=== PATIENT | female | born 1955 | race Caucasian/White ===

== ENCOUNTER 2018-09-16 23:08 | Inpatient (IN) | payer OTHER ==
[2018-09-17] MEDS ORDERED: LACTULOSE 30ML CUP PO (05:30)
[2018-09-17] MEDS ORDERED: ALBUTEROL/IPRATROPIUM (NEB) 3 ML AMP HHN (05:30)
[2018-09-17] MEDS ORDERED: ACETAMINOPHEN 325 MG TAB PO (05:30)
[2018-09-17] MEDS ORDERED: ZOLPIDEM 5 MG TAB PO (05:30)
[2018-09-17] MEDS ORDERED: BISACODYL 10 MG SUPP PR (05:30)
[2018-09-17] MEDS ORDERED: NACL 0.9% 3 ML SYG IV (05:30)
[2018-09-17 05:54] LABS: ADD MAN DIFF? NO
[2018-09-17] MEDS: METHADONE (1 MG/ML 5 ML PO UD SYG) PO (06:00)
[2018-09-17 06:01] LABS: WHITE BLOOD COUNT 11.5 10^3/ul (4.8-10.8)
[2018-09-17 06:01] LABS: BASOPHILS % 0.3 % (0.0-2.0); EOSINOPHILS % 0.3 % (0.0-7.0); HEMATOCRIT 40.5 % (37.0-47.0); HEMOGLOBIN 13.3 g/dl (12.0-16.0); LYMPHOCYTES # 1.7 10^3/ul (0.8-2.9); LYMPHOCYTES % 14.4 % (15.0-51.0); MEAN CORPUSCULAR HEMOGLOBIN 27.4 pg (29.0-33.0); MEAN CORPUSCULAR HGB CONC 32.8 g/dl (32.0-37.0); MEAN CORPUSCULAR VOLUME 83.5 fl (82.0-101.0); MEAN PLATELET VOLUME 10.9 fl (7.4-10.4); MONOCYTES % 8.3 % (0.0-11.0); NEUTROPHIL # 8.8 10^3/ul (1.6-7.5); NEUTROPHILS % 76.1 % (39.0-77.0); PLATELET COUNT 238 10^3/UL (140-415); RED BLOOD COUNT 4.85 10^6/ul (4.20-5.40); RED CELL DISTRIBUTION WIDTH 13.6 % (11.5-14.5)
[2018-09-17 06:12] LABS: HEMOGLOBIN A1C 12.4 % (0-5.9)
[2018-09-17] MEDS: traMADol 50 MG TAB PO ×3 (06:17→22:14)
[2018-09-17] MEDS: PANTOPRAZOLE (EC) 40 MG TAB PO (06:17)
[2018-09-17] MEDS: GABAPENTIN 300 MG CAP PO ×4 (06:17→22:15)
[2018-09-17] MEDS: SOD CHLORIDE 0.9% 1,000 ML IV ×3 (06:17→22:14)
[2018-09-17 06:25] LABS: CREATINE KINASE 1268 IU/L (23-200)
[2018-09-17 06:28] LABS: ALANINE AMINOTRANSFERASE 43 IU/L (13-69); ALBUMIN 3.5 g/dl (3.3-4.9); ALBUMIN/GLOBULIN RATIO 1.09; ALKALINE PHOSPHATASE 110 IU/L (42-121); ANION GAP 12 (5-13); ASPARTATE AMINO TRANSFERASE 69 IU/L (15-46); BILIRUBIN,INDIRECT 0.6 mg/dl (0-1.1); BILIRUBIN,TOTAL 0.6 mg/dl (0.2-1.3); BLOOD UREA NITROGEN 23 mg/dl (7-20); CALCIUM 8.8 mg/dl (8.4-10.2); CARBON DIOXIDE 26 mmol/L (21-31); CHLORIDE 102 mmol/L (97-110); CHOL/HDL RATIO 3.9 RATIO; CHOLESTEROL 186 mg/dl (100-200); CREATININE 0.66 mg/dl (0.44-1.00); Estimated GFR > 60 mL/min (>60); GLUCOSE 227 mg/dl (70-220); HDL CHOLESTEROL 47 mg/dl (35-98); LDL CHOLESTEROL,CALCULATED 99 mg/dl; POTASSIUM 3.6 mmol/L (3.5-5.1); SODIUM 140 mmol/L (135-144); TOTAL PROTEIN 6.7 g/dl (6.1-8.1); TRIGLYCERIDES 200 mg/dl (0-149)
[2018-09-17] MEDS ORDERED: PENDING SANTYL ORDER FOR WOUND CARE XX (07:00)
[2018-09-17] MEDS: HEPARIN 5,000 UNIT/1 ML VIAL SC ×2 (09:05→22:14)
[2018-09-17] MEDS: FERROUS SULFATE (EC) 325 MG TAB PO ×3 (09:06→22:16)
[2018-09-17] MEDS: SENNA/DOCUSATE NA (8.6MG/50MG) TAB PO ×2 (09:06→22:16)
[2018-09-17] MEDS: ASPIRIN (EC) 81 MG TAB PO (09:07)
[2018-09-17] MEDS: LISINOPRIL 10 MG TAB PO (09:07)
[2018-09-17] MEDS: FUROSEMIDE 40 MG TAB PO (09:07)
[2018-09-17] MEDS: DOCUSATE SODIUM 100 MG CAP PO ×2 (09:07→22:16)
[2018-09-17] MEDS: POLYETHYLENE GLYCOL 17 GM PACKET PO (09:08)
[2018-09-17] MEDS: AMLODIPINE 10 MG TAB PO (09:08)
[2018-09-17] MEDS: COLLAGENASE 5 GM (UD JAR) TOP (09:08)
[2018-09-17] MEDS: ONDANSETRON 4 MG INJ IV (12:43)
[2018-09-17] MEDS ORDERED: ATORVASTATIN 80 MG TAB PO (21:00)
[2018-09-17] MEDS: INSULIN GLARGINE [LANTus] (100 UNITS/ML) SYG SC (22:12)
[2018-09-18] MEDS: morphine 2 MG INJ IV ×5 (02:22→22:52)
[2018-09-18] MEDS ORDERED: GLUCOSE GEL 15 GRAM TUBE BUCCAL (03:00)
[2018-09-18] MEDS ORDERED: GLUCOSE GEL 15 GRAM TUBE PO ×2 (03:00)
[2018-09-18] MEDS ORDERED: GLUCAGON 1 MG INJ IM (03:00)
[2018-09-18] MEDS ORDERED: DEXTROSE 50% 50 ML SYRINGE IV ×2 (03:00)
[2018-09-18] MEDS: PANTOPRAZOLE (EC) 40 MG TAB PO (05:51)
[2018-09-18 05:52] LABS: ADD MAN DIFF? NO
[2018-09-18] MEDS: SOD CHLORIDE 0.9% 1,000 ML IV ×3 (06:19→21:18)
[2018-09-18 06:24] LABS: ANION GAP 6 (5-13); BLOOD UREA NITROGEN 15 mg/dl (7-20); CALCIUM 7.9 mg/dl (8.4-10.2); CARBON DIOXIDE 29 mmol/L (21-31); CHLORIDE 102 mmol/L (97-110); CREATININE 0.54 mg/dl (0.44-1.00); Estimated GFR > 60 mL/min (>60); GLUCOSE 202 mg/dl (70-220); MAGNESIUM 1.8 mg/dl (1.7-2.5); PHOSPHORUS 2.7 mg/dl (2.5-4.9); POTASSIUM 3.4 mmol/L (3.5-5.1); SODIUM 137 mmol/L (135-144)
[2018-09-18 06:34] LABS: WHITE BLOOD COUNT 9.5 10^3/ul (4.8-10.8)
[2018-09-18 06:34] LABS: BASOPHIL # 0.1 10^3/ul (0.0-0.1); BASOPHILS % 0.5 % (0.0-2.0); EOSINOPHILS # 0.1 10^3/ul (0.0-0.5); EOSINOPHILS % 0.5 % (0.0-7.0); HEMATOCRIT 37.4 % (37.0-47.0); LYMPHOCYTES # 2.5 10^3/ul (0.8-2.9); MEAN CORPUSCULAR HEMOGLOBIN 27.5 pg (29.0-33.0); MEAN CORPUSCULAR HGB CONC 32.1 g/dl (32.0-37.0); MEAN CORPUSCULAR VOLUME 85.8 fl (82.0-101.0); MONOCYTE # 0.9 10^3/ul (0.3-0.9); MONOCYTES % 9.3 % (0.0-11.0); NEUTROPHILS % 63.3 % (39.0-77.0); PLATELET COUNT 159 10^3/UL (140-415); RED BLOOD COUNT 4.36 10^6/ul (4.20-5.40); RED CELL DISTRIBUTION WIDTH 13.6 % (11.5-14.5)
[2018-09-18 06:38] LABS: CK-MB 2.76 ng/ml (0.0-2.4)
[2018-09-18 06:47] LABS: CK INDEX 0.2; CREATINE KINASE 1571 IU/L (23-200)
[2018-09-18 07:24] LABS: HEMOGLOBIN A1C 13.1 % (0-5.9)
[2018-09-18] MEDS: ASPIRIN (EC) 81 MG TAB PO (08:06)
[2018-09-18] MEDS: FERROUS SULFATE (EC) 325 MG TAB PO ×3 (08:07→21:00)
[2018-09-18] MEDS: LISINOPRIL 10 MG TAB PO (08:07)
[2018-09-18] MEDS: GABAPENTIN 300 MG CAP PO ×3 (08:07→21:01)
[2018-09-18] MEDS: POLYETHYLENE GLYCOL 17 GM PACKET PO (08:08)
[2018-09-18] MEDS: FUROSEMIDE 40 MG TAB PO (08:08)
[2018-09-18] MEDS: AMLODIPINE 10 MG TAB PO (08:08)
[2018-09-18] MEDS: SENNA/DOCUSATE NA (8.6MG/50MG) TAB PO ×2 (08:09→21:09)
[2018-09-18] MEDS: DOCUSATE SODIUM 100 MG CAP PO ×2 (08:09→21:01)
[2018-09-18] MEDS: HEPARIN 5,000 UNIT/1 ML VIAL SC ×2 (08:10→21:06)
[2018-09-18] MEDS: INSULIN ASPART [NOVOLOG] 3 ML PEN SC ×4 (08:14→21:05)
[2018-09-18] MEDS: COLLAGENASE 5 GM (UD JAR) TOP (08:14)
[2018-09-18] MEDS: POTASSIUM CHLORIDE (SR) 20 MEQ TAB PO (15:25)
[2018-09-18] MEDS: traMADol 50 MG TAB PO (17:37)
[2018-09-18] MEDS: INSULIN GLARGINE [LANTus] (100 UNITS/ML) SYG SC (21:07)
[2018-09-19] MEDS: morphine 2 MG INJ IV ×6 (01:53→22:01)
[2018-09-19] MEDS: ACCU-CHEK XX (02:00)
[2018-09-19] MEDS: SOD CHLORIDE 0.9% 1,000 ML IV ×3 (05:43→17:31)
[2018-09-19] MEDS: PANTOPRAZOLE (EC) 40 MG TAB PO (06:18)
[2018-09-19 06:57] LABS: ADD MAN DIFF? NO
[2018-09-19 06:59] LABS: BASOPHILS % 0.4 % (0.0-2.0); EOSINOPHILS # 0.1 10^3/ul (0.0-0.5); EOSINOPHILS % 1.3 % (0.0-7.0); HEMATOCRIT 38.7 % (37.0-47.0); HEMOGLOBIN 12.5 g/dl (12.0-16.0); LYMPHOCYTES # 2.4 10^3/ul (0.8-2.9); LYMPHOCYTES % 25.1 % (15.0-51.0); MEAN CORPUSCULAR HEMOGLOBIN 27.5 pg (29.0-33.0); MEAN CORPUSCULAR HGB CONC 32.3 g/dl (32.0-37.0); MEAN CORPUSCULAR VOLUME 85.2 fl (82.0-101.0); MEAN PLATELET VOLUME 11.6 fl (7.4-10.4); MONOCYTE # 0.9 10^3/ul (0.3-0.9); MONOCYTES % 9.1 % (0.0-11.0); NEUTROPHIL # 6.2 10^3/ul (1.6-7.5); NEUTROPHILS % 63.6 % (39.0-77.0); PLATELET COUNT 188 10^3/UL (140-415); RED BLOOD COUNT 4.54 10^6/ul (4.20-5.40); RED CELL DISTRIBUTION WIDTH 13.4 % (11.5-14.5)
[2018-09-19 06:59] LABS: WHITE BLOOD COUNT 9.7 10^3/ul (4.8-10.8)
[2018-09-19 07:33] LABS: MAGNESIUM 1.8 mg/dl (1.7-2.5)
[2018-09-19 07:33] LABS: PHOSPHORUS 2.6 mg/dl (2.5-4.9)
[2018-09-19 07:37] LABS: ANION GAP 7 (5-13); BLOOD UREA NITROGEN 11 mg/dl (7-20); CALCIUM 8.4 mg/dl (8.4-10.2); CARBON DIOXIDE 31 mmol/L (21-31); CHLORIDE 99 mmol/L (97-110); CREATININE 0.62 mg/dl (0.44-1.00); Estimated GFR > 60 mL/min (>60); GLUCOSE 186 mg/dl (70-220); POTASSIUM 3.5 mmol/L (3.5-5.1); SODIUM 137 mmol/L (135-144)
[2018-09-19 07:38] LABS: CK-MB 6.26 ng/ml (0.0-2.4); TROPONIN-I 0.035 ng/ml (0.000-0.120)
[2018-09-19] MEDS: INSULIN ASPART [NOVOLOG] 3 ML PEN SC ×4 (08:20→21:13)
[2018-09-19 08:55] LABS: CK INDEX 0.1
[2018-09-19] MEDS: POLYETHYLENE GLYCOL 17 GM PACKET PO ×2 (09:00→21:00)
[2018-09-19] MEDS: DOCUSATE SODIUM 100 MG CAP PO ×2 (09:00→21:01)
[2018-09-19] MEDS: SENNA/DOCUSATE NA (8.6MG/50MG) TAB PO ×2 (09:00→21:03)
[2018-09-19] MEDS: GABAPENTIN 300 MG CAP PO ×2 (09:22→21:02)
[2018-09-19] MEDS: AMLODIPINE 10 MG TAB PO (09:24)
[2018-09-19] MEDS: LISINOPRIL 10 MG TAB PO (09:26)
[2018-09-19] MEDS: FERROUS SULFATE (EC) 325 MG TAB PO ×3 (09:27→21:17)
[2018-09-19] MEDS: FUROSEMIDE 40 MG TAB PO (09:28)
[2018-09-19] MEDS: ASPIRIN (EC) 81 MG TAB PO (09:28)
[2018-09-19] MEDS: COLLAGENASE 5 GM (UD JAR) TOP (09:30)
[2018-09-19] MEDS: HEPARIN 5,000 UNIT/1 ML VIAL SC ×2 (09:31→21:11)
[2018-09-19] MEDS: morphine (ER) 15 MG TAB PO ×2 (13:26→21:03)
[2018-09-19] MEDS: NITROGLYCERIN 2% 1 GM OINT PKT TD (13:27)
[2018-09-19 16:57] LABS: ADD UMIC YES; UR ASCORBIC ACID NEGATIVE (NEGATIVE); UR BACTERIA MODERATE /HPF (NONE SEEN); UR BILIRUBIN (Dip) NEGATIVE (NEGATIVE); UR BLOOD (Dip) 2+ mg/dL (NEGATIVE); UR CLARITY SLIGHTLY CLOUDY (CLEAR); UR COLOR STRAW (YELLOW); UR GLUCOSE (Dip) 2+ mg/dL (NEGATIVE); UR KETONES (Dip) TRACE mg/dL (NEGATIVE); UR LEUKOCYTE ESTERASE (Dip) 3+ Leu/ul (NEGATIVE); UR NITRITE (Dip) NEGATIVE (NEGATIVE); UR RBC 7 /HPF (0-5); UR SPECIFIC GRAVITY (Dip) 1.008 (1.003-1.030); UR TOTAL PROTEIN (Dip) NEGATIVE (NEGATIVE); UR UROBILINOGEN (Dip) NEGATIVE (NEGATIVE); UR WBC 15 /HPF (0-5)
[2018-09-19 17:21] LABS: CREATININE,URINE RANDOM 22.05 mg/dl (20-320)
[2018-09-19 17:21] LABS: SODIUM,URINE RANDOM 144 mmol/L (30-90)
[2018-09-19] MEDS: INSULIN GLARGINE [LANTus] (100 UNITS/ML) SYG SC (21:12)
[2018-09-20] MEDS: SOD CHLORIDE 0.9% 1,000 ML IV ×3 (01:56→20:39)
[2018-09-20] MEDS: ACCU-CHEK XX (01:56)
[2018-09-20] MEDS: morphine 2 MG INJ IV (05:29)
[2018-09-20] MEDS: PANTOPRAZOLE (EC) 40 MG TAB PO (05:29)
[2018-09-20 06:02] LABS: ADD MAN DIFF? NO
[2018-09-20 06:11] LABS: BASOPHILS % 0.4 % (0.0-2.0); EOSINOPHILS # 0.1 10^3/ul (0.0-0.5); HEMATOCRIT 37.5 % (37.0-47.0); HEMOGLOBIN 12.2 g/dl (12.0-16.0); LYMPHOCYTES # 1.8 10^3/ul (0.8-2.9); LYMPHOCYTES % 18.8 % (15.0-51.0); MEAN CORPUSCULAR HEMOGLOBIN 27.5 pg (29.0-33.0); MEAN CORPUSCULAR HGB CONC 32.5 g/dl (32.0-37.0); MEAN CORPUSCULAR VOLUME 84.5 fl (82.0-101.0); MEAN PLATELET VOLUME 11.3 fl (7.4-10.4); MONOCYTE # 0.8 10^3/ul (0.3-0.9); MONOCYTES % 8.1 % (0.0-11.0); NEUTROPHIL # 6.8 10^3/ul (1.6-7.5); NEUTROPHILS % 71.1 % (39.0-77.0); PLATELET COUNT 200 10^3/UL (140-415); RED BLOOD COUNT 4.44 10^6/ul (4.20-5.40); RED CELL DISTRIBUTION WIDTH 13.1 % (11.5-14.5)
[2018-09-20 06:11] LABS: WHITE BLOOD COUNT 9.5 10^3/ul (4.8-10.8)
[2018-09-20 06:30] LABS: ANION GAP 8 (5-13); BLOOD UREA NITROGEN 10 mg/dl (7-20); CALCIUM 8.4 mg/dl (8.4-10.2); CARBON DIOXIDE 33 mmol/L (21-31); CHLORIDE 96 mmol/L (97-110); CREATININE 0.62 mg/dl (0.44-1.00); Estimated GFR > 60 mL/min (>60); GLUCOSE 171 mg/dl (70-220); MAGNESIUM 1.7 mg/dl (1.7-2.5); POTASSIUM 3.2 mmol/L (3.5-5.1); SODIUM 137 mmol/L (135-144)
[2018-09-20] MEDS: INSULIN ASPART [NOVOLOG] 3 ML PEN SC ×4 (08:27→20:36)
[2018-09-20] MEDS: HEPARIN 5,000 UNIT/1 ML VIAL SC ×2 (08:28→20:38)
[2018-09-20] MEDS: FERROUS SULFATE (EC) 325 MG TAB PO ×3 (08:30→20:33)
[2018-09-20] MEDS: ASPIRIN (EC) 81 MG TAB PO (08:30)
[2018-09-20] MEDS: morphine (ER) 15 MG TAB PO ×2 (08:30→20:33)
[2018-09-20] MEDS: DOCUSATE SODIUM 100 MG CAP PO ×2 (08:31→20:33)
[2018-09-20] MEDS: SENNA/DOCUSATE NA (8.6MG/50MG) TAB PO ×2 (08:32→20:33)
[2018-09-20] MEDS: FUROSEMIDE 40 MG TAB PO (08:32)
[2018-09-20] MEDS: LISINOPRIL 10 MG TAB PO (08:33)
[2018-09-20] MEDS: AMLODIPINE 10 MG TAB PO (08:33)
[2018-09-20] MEDS: NITROGLYCERIN 2% 1 GM OINT PKT TD (08:35)
[2018-09-20 08:36] LABS: CREATINE KINASE 6316 IU/L (23-200)
[2018-09-20] MEDS: COLLAGENASE 5 GM (UD JAR) TOP (08:37)
[2018-09-20] MEDS: GABAPENTIN 300 MG CAP PO ×4 (08:39→20:34)
[2018-09-20] MEDS: POLYETHYLENE GLYCOL 17 GM PACKET PO ×3 (09:00→20:34)
[2018-09-20] MEDS: POTASSIUM CHLORIDE (SR) 20 MEQ TAB PO (09:31)
[2018-09-20 14:28] LABS: CREATININE, RANDOM URINE 25 mg/dL (20-275); MICROALBUMIN 0.8 mg/dL; MICROALBUMIN/CREATININE RATIO 32 (<30)
[2018-09-20] MEDS: LEVOFLOXACIN 500MG/D5W (PMX) 100 ML IVPB (16:21)
[2018-09-20] MEDS: INSULIN GLARGINE [LANTus] (100 UNITS/ML) SYG SC (20:37)
[2018-09-21] MEDS: ACCU-CHEK XX (02:00)
[2018-09-21] MEDS: ACETAMINOPHEN 325 MG TAB PO (02:00)
[2018-09-21] MEDS: SOD CHLORIDE 0.9% 1,000 ML IV ×2 (03:31→12:43)
[2018-09-21 05:32] LABS: ADD MAN DIFF? NO
[2018-09-21 05:44] LABS: BASOPHILS % 0.2 % (0.0-2.0); EOSINOPHILS # 0.2 10^3/ul (0.0-0.5); EOSINOPHILS % 1.5 % (0.0-7.0); HEMATOCRIT 35.4 % (37.0-47.0); HEMOGLOBIN 11.4 g/dl (12.0-16.0); LYMPHOCYTES # 2.2 10^3/ul (0.8-2.9); LYMPHOCYTES % 22.2 % (15.0-51.0); MEAN CORPUSCULAR HEMOGLOBIN 27.3 pg (29.0-33.0); MEAN CORPUSCULAR HGB CONC 32.2 g/dl (32.0-37.0); MEAN CORPUSCULAR VOLUME 84.7 fl (82.0-101.0); MEAN PLATELET VOLUME 11.3 fl (7.4-10.4); MONOCYTES % 9.7 % (0.0-11.0); NEUTROPHIL # 6.4 10^3/ul (1.6-7.5); NEUTROPHILS % 65.7 % (39.0-77.0); PLATELET COUNT 193 10^3/UL (140-415); RED BLOOD COUNT 4.18 10^6/ul (4.20-5.40); RED CELL DISTRIBUTION WIDTH 13.4 % (11.5-14.5)
[2018-09-21 05:44] LABS: WHITE BLOOD COUNT 9.8 10^3/ul (4.8-10.8)
[2018-09-21] MEDS: PANTOPRAZOLE (EC) 40 MG TAB PO (05:47)
[2018-09-21 06:01] LABS: ANION GAP 8 (5-13); BLOOD UREA NITROGEN 12 mg/dl (7-20); CALCIUM 8.4 mg/dl (8.4-10.2); CARBON DIOXIDE 33 mmol/L (21-31); CHLORIDE 98 mmol/L (97-110); CREATININE 0.73 mg/dl (0.44-1.00); Estimated GFR > 60 mL/min (>60); GLUCOSE 129 mg/dl (70-220); MAGNESIUM 1.6 mg/dl (1.7-2.5); PHOSPHORUS 3.4 mg/dl (2.5-4.9); POTASSIUM 3.2 mmol/L (3.5-5.1); SODIUM 139 mmol/L (135-144)
[2018-09-21 06:18] LABS: C-REACTIVE PROTEIN 19.7 mg/dl (0.0-0.9)
[2018-09-21 07:37] LABS: ERYTHROCYTE SEDIMENTATION RATE 50 mm/Hr (0-30)
[2018-09-21 07:53] LABS: CREATINE KINASE 5456 IU/L (23-200)
[2018-09-21] MEDS: INSULIN ASPART [NOVOLOG] 3 ML PEN SC ×4 (08:00→20:37)
[2018-09-21] MEDS: COLLAGENASE 5 GM (UD JAR) TOP (08:19)
[2018-09-21] MEDS: ASPIRIN (EC) 81 MG TAB PO (08:21)
[2018-09-21] MEDS: AMLODIPINE 10 MG TAB PO (08:21)
[2018-09-21] MEDS: GABAPENTIN 300 MG CAP PO ×3 (08:21→20:20)
[2018-09-21] MEDS: LISINOPRIL 10 MG TAB PO (08:22)
[2018-09-21] MEDS: morphine (ER) 15 MG TAB PO ×2 (08:23→20:20)
[2018-09-21] MEDS: FERROUS SULFATE (EC) 325 MG TAB PO ×3 (08:23→20:20)
[2018-09-21] MEDS: FUROSEMIDE 40 MG TAB PO (08:23)
[2018-09-21] MEDS: POLYETHYLENE GLYCOL 17 GM PACKET PO ×3 (08:30→20:21)
[2018-09-21] MEDS: HEPARIN 5,000 UNIT/1 ML VIAL SC ×2 (08:31→20:26)
[2018-09-21] MEDS: SENNA/DOCUSATE NA (8.6MG/50MG) TAB PO ×2 (08:39→20:20)
[2018-09-21] MEDS: DOCUSATE SODIUM 100 MG CAP PO ×2 (08:40→20:19)
[2018-09-21] MEDS: NITROGLYCERIN 2% 1 GM OINT PKT TD (09:09)
[2018-09-21 10:42] LABS: URIC ACID 4.3 mg/dl (3.1-7.9)
[2018-09-21] MEDS ORDERED: KETOROLAC 30 MG INJ IV (12:10)
[2018-09-21] MEDS: POTASSIUM CHLORIDE (SR) 20 MEQ TAB PO (12:30)
[2018-09-21] MEDS ORDERED: NYSTATIN 30 GM POWDER BTL TOP (12:30)
[2018-09-21] MEDS: MAGNESIUM SULFATE 2 GM/50 ML 50 ML IVPB (12:31)
[2018-09-21] MEDS: KETOROLAC 30 MG INJ IV (12:49)
[2018-09-21] MEDS: LEVOFLOXACIN 500MG/D5W (PMX) 100 ML IVPB (15:29)
[2018-09-21] MEDS: NYSTATIN 30 GM POWDER BTL TOP ×2 (15:29→22:49)
[2018-09-21] MEDS: INSULIN GLARGINE [LANTus] (100 UNITS/ML) SYG SC (20:34)
[2018-09-22] MEDS: ACCU-CHEK XX (02:00)
[2018-09-22] MEDS: SOD CHLORIDE 0.9% 1,000 ML IV ×2 (06:13→17:38)
[2018-09-22] MEDS: ACETAMINOPHEN 325 MG TAB PO ×2 (06:17→17:37)
[2018-09-22] MEDS: PANTOPRAZOLE (EC) 40 MG TAB PO (06:17)
[2018-09-22] MEDS: INSULIN ASPART [NOVOLOG] 3 ML PEN SC ×4 (08:00→21:00)
[2018-09-22] MEDS: FUROSEMIDE 40 MG TAB PO (08:29)
[2018-09-22] MEDS: LISINOPRIL 10 MG TAB PO (08:31)
[2018-09-22] MEDS: AMLODIPINE 10 MG TAB PO (08:31)
[2018-09-22] MEDS: ASPIRIN (EC) 81 MG TAB PO (08:31)
[2018-09-22] MEDS: SENNA/DOCUSATE NA (8.6MG/50MG) TAB PO ×2 (08:31→20:52)
[2018-09-22] MEDS: POLYETHYLENE GLYCOL 17 GM PACKET PO ×3 (08:32→20:52)
[2018-09-22] MEDS: FERROUS SULFATE (EC) 325 MG TAB PO ×3 (08:32→20:49)
[2018-09-22] MEDS: GABAPENTIN 300 MG CAP PO ×3 (08:33→20:49)
[2018-09-22] MEDS: morphine (ER) 15 MG TAB PO ×2 (08:33→20:50)
[2018-09-22] MEDS: DOCUSATE SODIUM 100 MG CAP PO ×2 (08:33→20:49)
[2018-09-22] MEDS: NITROGLYCERIN 2% 1 GM OINT PKT TD (08:35)
[2018-09-22] MEDS: COLLAGENASE 5 GM (UD JAR) TOP (08:37)
[2018-09-22] MEDS: NYSTATIN 30 GM POWDER BTL TOP ×2 (08:39→21:07)
[2018-09-22] MEDS: HEPARIN 5,000 UNIT/1 ML VIAL SC ×2 (08:40→20:57)
[2018-09-22 12:34] LABS: ANION GAP 5 (5-13); BLOOD UREA NITROGEN 14 mg/dl (7-20); CALCIUM 8.6 mg/dl (8.4-10.2); CARBON DIOXIDE 32 mmol/L (21-31); CHLORIDE 101 mmol/L (97-110); CREATININE 0.72 mg/dl (0.44-1.00); Estimated GFR > 60 mL/min (>60); GLUCOSE 122 mg/dl (70-220); MAGNESIUM 1.9 mg/dl (1.7-2.5); POTASSIUM 3.4 mmol/L (3.5-5.1); SODIUM 138 mmol/L (135-144)
[2018-09-22 12:50] LABS: C-REACTIVE PROTEIN 20.5 mg/dl (0.0-0.9)
[2018-09-22 13:20] LABS: ERYTHROCYTE SEDIMENTATION RATE 50 mm/Hr (0-30)
[2018-09-22 14:02] LABS: CREATINE KINASE 5055 IU/L (23-200)
[2018-09-22] MEDS: POTASSIUM CHLORIDE (SR) 20 MEQ TAB PO (15:47)
[2018-09-22] MEDS: INSULIN GLARGINE [LANTus] (100 UNITS/ML) SYG SC (20:58)
[2018-09-23] MEDS: ACCU-CHEK XX ×2 (02:00→20:28)
[2018-09-23] MEDS: PANTOPRAZOLE (EC) 40 MG TAB PO (05:35)
[2018-09-23] MEDS: SOD CHLORIDE 0.9% 1,000 ML IV ×3 (05:36→20:27)
[2018-09-23 06:06] LABS: ADD MAN DIFF? NO
[2018-09-23 06:17] LABS: WHITE BLOOD COUNT 8.6 10^3/ul (4.8-10.8)
[2018-09-23 06:17] LABS: BASOPHILS % 0.3 % (0.0-2.0); EOSINOPHILS # 0.2 10^3/ul (0.0-0.5); EOSINOPHILS % 2.8 % (0.0-7.0); HEMATOCRIT 34.1 % (37.0-47.0); HEMOGLOBIN 11.2 g/dl (12.0-16.0); LYMPHOCYTES # 2.2 10^3/ul (0.8-2.9); MEAN CORPUSCULAR HEMOGLOBIN 27.7 pg (29.0-33.0); MEAN CORPUSCULAR HGB CONC 32.8 g/dl (32.0-37.0); MEAN CORPUSCULAR VOLUME 84.4 fl (82.0-101.0); MEAN PLATELET VOLUME 11.7 fl (7.4-10.4); MONOCYTE # 0.7 10^3/ul (0.3-0.9); MONOCYTES % 8.6 % (0.0-11.0); NEUTROPHIL # 5.3 10^3/ul (1.6-7.5); NEUTROPHILS % 61.6 % (39.0-77.0); PLATELET COUNT 198 10^3/UL (140-415); RED BLOOD COUNT 4.04 10^6/ul (4.20-5.40); RED CELL DISTRIBUTION WIDTH 13.8 % (11.5-14.5)
[2018-09-23 06:59] LABS: PHOSPHORUS 3.9 mg/dl (2.5-4.9)
[2018-09-23 06:59] LABS: MAGNESIUM 1.8 mg/dl (1.7-2.5)
[2018-09-23 07:15] LABS: ANION GAP 6 (5-13); BLOOD UREA NITROGEN 13 mg/dl (7-20); CALCIUM 8.9 mg/dl (8.4-10.2); CARBON DIOXIDE 30 mmol/L (21-31); CHLORIDE 102 mmol/L (97-110); CREATININE 0.69 mg/dl (0.44-1.00); Estimated GFR > 60 mL/min (>60); GLUCOSE 160 mg/dl (70-220); POTASSIUM 3.7 mmol/L (3.5-5.1); SODIUM 138 mmol/L (135-144)
[2018-09-23] MEDS: INSULIN ASPART [NOVOLOG] 3 ML PEN SC ×4 (07:47→20:12)
[2018-09-23] MEDS: SENNA/DOCUSATE NA (8.6MG/50MG) TAB PO ×2 (08:33→20:17)
[2018-09-23] MEDS: DOCUSATE SODIUM 100 MG CAP PO ×2 (08:33→20:18)
[2018-09-23] MEDS: FERROUS SULFATE (EC) 325 MG TAB PO ×3 (08:33→20:18)
[2018-09-23] MEDS: POLYETHYLENE GLYCOL 17 GM PACKET PO ×2 (08:33→20:17)
[2018-09-23] MEDS: GABAPENTIN 300 MG CAP PO ×3 (08:34→20:18)
[2018-09-23] MEDS: ASPIRIN (EC) 81 MG TAB PO (08:34)
[2018-09-23] MEDS: HEPARIN 5,000 UNIT/1 ML VIAL SC ×2 (08:35→20:16)
[2018-09-23] MEDS: AMLODIPINE 10 MG TAB PO (08:35)
[2018-09-23] MEDS: LISINOPRIL 10 MG TAB PO (08:36)
[2018-09-23] MEDS: FUROSEMIDE 40 MG TAB PO (08:36)
[2018-09-23] MEDS: NITROGLYCERIN 2% 1 GM OINT PKT TD (08:36)
[2018-09-23] MEDS: morphine (ER) 15 MG TAB PO ×2 (08:37→20:18)
[2018-09-23] MEDS: COLLAGENASE 5 GM (UD JAR) TOP (08:37)
[2018-09-23] MEDS: NYSTATIN 30 GM POWDER BTL TOP ×2 (08:38→20:27)
[2018-09-23 11:20] LABS: CREATINE KINASE 3172 IU/L (23-200)
[2018-09-23] MEDS: INSULIN GLARGINE [LANTus] (100 UNITS/ML) SYG SC (20:14)
[2018-09-24 06:04] LABS: ADD MAN DIFF? NO
[2018-09-24 06:08] LABS: BASOPHILS % 0.5 % (0.0-2.0); EOSINOPHILS # 0.2 10^3/ul (0.0-0.5); EOSINOPHILS % 2.6 % (0.0-7.0); HEMATOCRIT 34.7 % (37.0-47.0); HEMOGLOBIN 11.2 g/dl (12.0-16.0); LYMPHOCYTES # 2.1 10^3/ul (0.8-2.9); LYMPHOCYTES % 25.6 % (15.0-51.0); MEAN CORPUSCULAR HEMOGLOBIN 27.2 pg (29.0-33.0); MEAN CORPUSCULAR HGB CONC 32.3 g/dl (32.0-37.0); MEAN CORPUSCULAR VOLUME 84.2 fl (82.0-101.0); MEAN PLATELET VOLUME 10.8 fl (7.4-10.4); MONOCYTE # 0.7 10^3/ul (0.3-0.9); MONOCYTES % 8.8 % (0.0-11.0); NEUTROPHIL # 5.1 10^3/ul (1.6-7.5); NEUTROPHILS % 61.4 % (39.0-77.0); PLATELET COUNT 227 10^3/UL (140-415); RED BLOOD COUNT 4.12 10^6/ul (4.20-5.40); RED CELL DISTRIBUTION WIDTH 13.8 % (11.5-14.5)
[2018-09-24 06:08] LABS: WHITE BLOOD COUNT 8.2 10^3/ul (4.8-10.8)
[2018-09-24] MEDS: PANTOPRAZOLE (EC) 40 MG TAB PO (06:29)
[2018-09-24] MEDS: SOD CHLORIDE 0.9% 1,000 ML IV (06:34)
[2018-09-24 06:35] LABS: ANION GAP 7 (5-13); BLOOD UREA NITROGEN 14 mg/dl (7-20); CALCIUM 9.1 mg/dl (8.4-10.2); CARBON DIOXIDE 30 mmol/L (21-31); CHLORIDE 101 mmol/L (97-110); Estimated GFR > 60 mL/min (>60); GLUCOSE 164 mg/dl (70-220); POTASSIUM 3.4 mmol/L (3.5-5.1); SODIUM 138 mmol/L (135-144)
[2018-09-24 06:36] LABS: PHOSPHORUS 4.7 mg/dl (2.5-4.9)
[2018-09-24 06:36] LABS: MAGNESIUM 1.8 mg/dl (1.7-2.5)
[2018-09-24] MEDS: DOCUSATE SODIUM 100 MG CAP PO ×2 (08:21→20:34)
[2018-09-24] MEDS: COLLAGENASE 5 GM (UD JAR) TOP (08:21)
[2018-09-24] MEDS: GABAPENTIN 300 MG CAP PO ×3 (08:21→20:35)
[2018-09-24] MEDS: FERROUS SULFATE (EC) 325 MG TAB PO ×3 (08:22→20:35)
[2018-09-24] MEDS: FUROSEMIDE 40 MG TAB PO (08:22)
[2018-09-24] MEDS: LISINOPRIL 10 MG TAB PO (08:23)
[2018-09-24] MEDS: POTASSIUM CHLORIDE (SR) 10 MEQ TAB PO (08:23)
[2018-09-24] MEDS: SENNA/DOCUSATE NA (8.6MG/50MG) TAB PO ×2 (08:23→20:34)
[2018-09-24] MEDS: morphine (ER) 15 MG TAB PO ×2 (08:23→20:35)
[2018-09-24] MEDS: AMLODIPINE 10 MG TAB PO (08:24)
[2018-09-24] MEDS: NITROGLYCERIN 2% 1 GM OINT PKT TD (08:25)
[2018-09-24] MEDS: ASPIRIN (EC) 81 MG TAB PO (08:25)
[2018-09-24] MEDS: POLYETHYLENE GLYCOL 17 GM PACKET PO ×2 (08:26→20:34)
[2018-09-24] MEDS: NYSTATIN 30 GM POWDER BTL TOP ×2 (08:26→20:38)
[2018-09-24] MEDS: HEPARIN 5,000 UNIT/1 ML VIAL SC ×2 (08:27→20:37)
[2018-09-24] MEDS: INSULIN ASPART [NOVOLOG] 3 ML PEN SC ×4 (08:28→20:33)
[2018-09-24 10:31] LABS: CREATINE KINASE 3164 IU/L (23-200)
[2018-09-24] MEDS: LACTULOSE 30ML CUP PO (11:40)
[2018-09-24] MEDS: INSULIN GLARGINE [LANTus] (100 UNITS/ML) SYG SC (20:37)
[2018-09-25] MEDS: ACCU-CHEK XX (01:27)
[2018-09-25 05:22] LABS: ADD MAN DIFF? NO
[2018-09-25] MEDS: PANTOPRAZOLE (EC) 40 MG TAB PO (05:27)
[2018-09-25 05:35] LABS: WHITE BLOOD COUNT 9.2 10^3/ul (4.8-10.8)
[2018-09-25 05:35] LABS: BASOPHIL # 0.1 10^3/ul (0.0-0.1); BASOPHILS % 0.7 % (0.0-2.0); EOSINOPHILS # 0.3 10^3/ul (0.0-0.5); EOSINOPHILS % 2.8 % (0.0-7.0); HEMATOCRIT 38.8 % (37.0-47.0); HEMOGLOBIN 12.3 g/dl (12.0-16.0); LYMPHOCYTES # 2.4 10^3/ul (0.8-2.9); LYMPHOCYTES % 25.7 % (15.0-51.0); MEAN CORPUSCULAR HGB CONC 31.7 g/dl (32.0-37.0); MEAN CORPUSCULAR VOLUME 85.3 fl (82.0-101.0); MEAN PLATELET VOLUME 10.7 fl (7.4-10.4); MONOCYTE # 0.8 10^3/ul (0.3-0.9); MONOCYTES % 8.3 % (0.0-11.0); NEUTROPHIL # 5.6 10^3/ul (1.6-7.5); NEUTROPHILS % 61.1 % (39.0-77.0); PLATELET COUNT 257 10^3/UL (140-415); RED BLOOD COUNT 4.55 10^6/ul (4.20-5.40); RED CELL DISTRIBUTION WIDTH 13.9 % (11.5-14.5)
[2018-09-25 05:56] LABS: CREATINE KINASE 1311 IU/L (23-200)
[2018-09-25 05:58] LABS: ANION GAP 8 (5-13); BLOOD UREA NITROGEN 15 mg/dl (7-20); CALCIUM 9.3 mg/dl (8.4-10.2); CARBON DIOXIDE 30 mmol/L (21-31); CHLORIDE 101 mmol/L (97-110); CREATININE 0.74 mg/dl (0.44-1.00); Estimated GFR > 60 mL/min (>60); GLUCOSE 159 mg/dl (70-220); POTASSIUM 3.9 mmol/L (3.5-5.1); SODIUM 139 mmol/L (135-144)
[2018-09-25 06:11] LABS: MAGNESIUM 1.9 mg/dl (1.7-2.5)
[2018-09-25 06:11] LABS: PHOSPHORUS 4.6 mg/dl (2.5-4.9)
[2018-09-25] MEDS: INSULIN ASPART [NOVOLOG] 3 ML PEN SC ×3 (08:00→18:07)
[2018-09-25] MEDS: AMLODIPINE 10 MG TAB PO (08:53)
[2018-09-25] MEDS: DOCUSATE SODIUM 100 MG CAP PO ×2 (08:53→09:00)
[2018-09-25] MEDS: FUROSEMIDE 40 MG TAB PO (08:54)
[2018-09-25] MEDS: POLYETHYLENE GLYCOL 17 GM PACKET PO ×2 (08:54→09:00)
[2018-09-25] MEDS: ASPIRIN (EC) 81 MG TAB PO (08:54)
[2018-09-25] MEDS: FERROUS SULFATE (EC) 325 MG TAB PO ×2 (08:54→12:51)
[2018-09-25] MEDS: SENNA/DOCUSATE NA (8.6MG/50MG) TAB PO (08:55)
[2018-09-25] MEDS: LISINOPRIL 10 MG TAB PO (08:55)
[2018-09-25] MEDS: GABAPENTIN 300 MG CAP PO ×2 (08:55→12:51)
[2018-09-25] MEDS: morphine (ER) 15 MG TAB PO (08:55)
[2018-09-25] MEDS: COLLAGENASE 5 GM (UD JAR) TOP (08:56)
[2018-09-25] MEDS: NITROGLYCERIN 2% 1 GM OINT PKT TD (08:56)
[2018-09-25] MEDS: NYSTATIN 30 GM POWDER BTL TOP (08:56)
[2018-09-25] MEDS: HEPARIN 5,000 UNIT/1 ML VIAL SC (08:58)
== END 2018-09-25 18:40 | disposition home or self-care (01) | DRG 558 ==
LOC: PP2 23:08
DX: M62.82 Rhabdomyolysis (principal); E87.6 Hypokalemia; E83.42 Hypomagnesemia; I10 Essential (primary) hypertension; E11.40 Type 2 diabetes mellitus with diabetic neuropathy, unspecified; E78.5 Hyperlipidemia, unspecified; E11.51 Type 2 diabetes mellitus with diabetic peripheral angiopathy without gangrene; G89.29 Other chronic pain; M79.661 Pain in right lower leg; E66.9 Obesity, unspecified; Z68.32 Body mass index [BMI] 32.0-32.9, adult; Z95.1 Presence of aortocoronary bypass graft; Z89.511 Acquired absence of right leg below knee; Z89.612 Acquired absence of left leg above knee
CPT/HCPCS: 73721; 80048; 80053; 80061; 81001; 81003; 82043; 82550; 82553; 82962; 83036; 83735; 84100; 84155; 84300; 84484; 84560; 85025; 85651; 86140; 87081; 93922